=== PATIENT | male | born 1995 | race American Indian/Alaskan Native ===

== ENCOUNTER 2017-04-21 01:37 | Emergency (ER) | payer SELFPAY ==
[2017-04-21 01:50] VITALS: BMI 31.5
[2017-04-21] MEDS ORDERED: Lidocaine 2% Inj (20ml) ONE (02:15)
[2017-04-21] MEDS ORDERED: Bacitracin 500 Units/gm Oint Foilpak UD ONE (03:28)
--- NOTE | 2017-04-21 03:40 | C.PDOC ---
History Of Present Illness Patient is a 22 y/o male who presents to the ED with a complaint of lacerations to right second and third fingers s/p punching a mirror. Patient denies any weakness or numbness. No other physical complaints at this time. Time Seen by Provider: 04/21/17 01:58 Chief Complaint (Nursing): Abnormal Skin Integrity History Per: Patient History/Exam Limitations: no limitations Onset/Duration Of Symptoms: Mins ([employer]) Current Symptoms Are (Timing): Still Present Recent travel outside of the [place]: No Past Medical History Reviewed: Historical Data, Nursing Documentation, Vital Signs Vital Signs: Last Vital Signs Temp 98 F 04/21/17 03:58 Pulse 80 04/21/17 03:58 Resp 20 04/21/17 03:58 BP 120/80 04/21/17 03:58 Pulse Ox 97 04/21/17 05:48 - Medical History PMH: No Chronic Diseases Surgical History: No Surg Hx Family History: States: No Known Family Hx - Social History Hx Tobacco Use: No Hx Alcohol Use: No Hx Substance Use: No - Immunization History Hx Tetanus Toxoid Vaccination: Yes Hx Influenza Vaccination: Yes Hx Pneumococcal Vaccination: No Review Of Systems Skin: Positive for: Other (laceration to right second and third fingers) Neurological: Negative for: Weakness, Numbness Physical Exam - Physical Exam Appears: Well, Non-toxic, No Acute Distress Skin: Other (skin avulsion of right second finger over dorsal aspect of PIP, tendon visualized and partially lacerated, negative foreign body; 2 cm laceration to dorsal aspect of right middle finger, tendon intact, negative foreign body) Head: Atraumatic Eye(s): bilateral: Normal Inspection, PERRL Extremity: Normal ROM, Capillary Refill (< 2sec) Extremity: Bilateral: Normal Color And Temperature Neurological/Psych: Normal Motor, Normal Sensation ED Course And Treatment O2 Sat by Pulse Oximetry: 97 Pulse Ox Interpretation: Normal Progress Note: Laceration was repaired and Rt second finger wound was vigorously irrigated then xeroform dressing applied. Wound instruction given to pt and was instructed to call Dr Joyce- hand surgeon for evaluation Laceration - Laceration Repair right third finger Wound Length (In cm): 2 Description Of Wound: Linear Wound Cleansed With: Betadine, Sterile Saline Anesthesia: Lidocaine 2% (digital block to right third finger) Wound Examination: Irrigated With Saline, No FB With Wound Exploration, No Tendon Injury With Wound Exploration Wound Closure: Suture (5 sutures) Suture Technique And Material Used: Running, Nylon (4.0) Wound Complexity: Simple (Pt tolerated procedure well) Disposition Counseled Patient/Family Regarding: Diagnosis, Need For Followup, Rx Given - Disposition Referrals: Mario Joyce MD [Staff Provider] - Disposition: HOME/ ROUTINE Disposition Time: 03:40 Condition: STABLE Additional Instructions: Please keep wound dry and clean PLS MAKE APPOINTMENT WITH HAND DR 8 Apply Neosporin oint Motrin for pain Suture removal in 10 days Return to ER if worse Prescriptions: Ibuprofen [Motrin Tab] 800 mg PO QID #20 tab Instructions: Laceration Repair With Stitches (DC) Forms: [facility] ([place]) - Clinical Impression Clinical Impression: Finger laceration, Avulsion of skin of finger - Scribe Statement The provider has reviewed the documentation as recorded by the Scribe Delia Iqbal All medical record entries made by the Scribe were at my direction and personally dictated by me. I have reviewed the chart and agree that the record accurately reflects my personal performance of the history, physical exam, medical decision making, and the department course for this patient. I have also personally directed, reviewed, and agree with the discharge instructions and disposition.
[2017-04-21 04:00] VITALS: BP 120/80; PULSE 80; RESP 20; TEMP 98
[2017-04-21 04:03] VITALS: O2SAT 97
--- NOTE | 2017-04-21 12:24 | RAD ---
PROCEDURE: Right Hand Radiographs. HISTORY: trauma, pain, laceration COMPARISON: None available. FINDINGS: BONES: No acute displaced fracture. JOINTS: No dislocation. SOFT TISSUES: Soft tissue swelling. No evidence of radiopaque foreign body. OTHER FINDINGS: None. IMPRESSION: Soft tissue swelling. No acute displaced fracture, dislocation, or significant joint effusion identified. If symptoms persist, or if there is continued clinical concern, x-ray follow-up in 7-10 days should be considered.
== END 2017-04-21 03:58 | disposition home or self-care (01) ==
LOC: C.ER 01:37
DX: S61.212A Laceration without foreign body of right middle finger without damage to nail, initial encounter (principal); W25.XXXA Contact with sharp glass, initial encounter; Y92.89 Other specified places as the place of occurrence of the external cause